=== PATIENT | male | born 1960 | race Caucasian/White ===

== ENCOUNTER 2025-07-05 18:12 | Inpatient (IN) | payer MEDICARE, OTHER ==
[~2025-07-05] VITALS: Ht 185.4 cm; Wt 82.7 kg
[2025-07-05] MEDS ORDERED: POLY119P2 PO (18:44)
[2025-07-05] MEDS ORDERED: SENN8.6T19 PO (18:44)
[2025-07-05] MEDS ORDERED: ACET-3117 PO (18:44)
[2025-07-05] MEDS ORDERED: DOCU100T2 PO (18:44)
[2025-07-05] MEDS ORDERED: BUSP5TAB3 PO (18:44)
[2025-07-05] MEDS ORDERED: HYDR-894 PO (18:44)
[2025-07-05] MEDS ORDERED: BISA10SU95 RC (18:44)
[2025-07-05] MEDS ORDERED: AMIN960L24 PO (18:44)
[2025-07-05] MEDS ORDERED: SENN-261 PO (18:44)
[2025-07-05] MEDS ORDERED: GABA-532 PO (18:44)
[2025-07-05] MEDS ORDERED: MULT-594 PO (18:44)
[2025-07-05] MEDS ORDERED: FURO20TA4 PO (18:44)
[2025-07-05] MEDS ORDERED: MAGN400O6 PO (18:44)
[2025-07-05] MEDS ORDERED: CLON0.1T PO (18:44)
[2025-07-05] MEDS ORDERED: NA P133E RC (18:44)
[2025-07-05 18:54] LABS: PLATELET COUNT (AUTO) 325 K/uL (152-348); RED BLOOD CELL COUNT(AUTO) 5.09 MIL/uL (4.06-5.63); RED CELL DISTRIBUTION WIDTH 15.0 % (12.1-16.2); WHITE BLOOD COUNT (AUTO) 9.8 K/uL (3.6-10.2)
[2025-07-05] MEDS ORDERED: LORAZEPAM 2 MG/1 ML VIAL ONE ×2 (18:57→19:22)
[2025-07-05] MEDS: LORAZEPAM 2 MG/1 ML VIAL IV ONE ×2 (19:00→19:27)
[2025-07-05 19:14] LABS: ASPARTATE AMINOTRANSFERASE 25 U/L (15-37); CREATININE 1.4 mg/dL (0.6-1.3); SODIUM SERUM 142 mmol/L (136-145); TOTAL PROTEIN, SERUM 7.9 g/dL (6.4-8.2); UREA NITROGEN, BLOOD 20 mg/dL (7-18)
[2025-07-05 19:31] LABS: ETHANOL < 3 MG/DL (0-10)
[2025-07-05 19:33] LABS: LACTIC ACID 2.5 mmol/L (0.4-2.0)
[2025-07-05] MEDS: IV NORMAL SALINE 500 ML IV ONE (19:43)
[2025-07-05 23:00] VITALS: BP 96/65
[2025-07-05] MEDS: IV NS 1000 ML 1,000 ML IV ONE (23:22)
[2025-07-06 00:42] LABS: *BILIRUBIN,URIN NEGATIVE (NEGATIVE); *BLOOD, URINE 1+ (NEGATIVE); *CLARITY,URINE CLEAR (CLEAR); *COLOR,URINE YELLOW (YELLOW); *KETONES,URINE NEGATIVE (NEGATIVE); *PROTEIN,URINE TRACE (NEGATIVE); *UROBILINOGEN,URINE 0.2 E.U./dl (NORMAL); LEUKOCYTE ESTERASE ,URINE 2+ (NEGATIVE); NITRITE, URINE POSITIVE (NEGATIVE); UGLUCOSE NEGATIVE (NEGATIVE)
[2025-07-06 00:50] LABS: *AMPHETAMINE, URINE NEGATIVE (NEGATIVE); *BARBITURATE, URINE NEGATIVE (NEGATIVE); *BENZODIAZEPINE, URINE NEGATIVE (NEGATIVE); *CANNABINOID, URINE NEGATIVE (NEGATIVE); *COCCAINE, URINE NEGATIVE (NEGATIVE); *OPIATE, URINE NEGATIVE (NEGATIVE); *PHENCYCLIDINE SCREEN,URINE NEGATIVE (NEGATIVE); FENTANYL, URINE NEGATIVE (NEGATIVE)
[2025-07-06] MEDS ORDERED: REMEDY ESSENTIAL ZINC PASTE 113 GM TP PRN (01:00)
[2025-07-06] MEDS ORDERED: ONDANSETRON 4 MG/2 ML VIAL IV PRN (01:00)
[2025-07-06] MEDS ORDERED: ACETAMINOPHEN 650 MG SUPP.RECT RC PRN (01:00)
[2025-07-06 01:46] LABS: SQUAMOUS EPITHELIAL CELL,UR NONE SEEN /HPF (NONE SEEN)
[2025-07-06] MEDS ORDERED: CEFTRIAXONE /D5W 50ML IVPB **ER PYXIS IV ONE (03:37)
[2025-07-06] MEDS: LORAZEPAM 2 MG/1 ML VIAL IV PRN (03:48)
[2025-07-06 04:05] VITALS: BP 129/83; TEMP 97.6; O2SAT 94
[2025-07-06 06:51] LABS: CREATININE 1.0 mg/dL (0.6-1.3); SODIUM SERUM 141.0 mmol/L (136-145); UREA NITROGEN, BLOOD 17.0 mg/dL (7-18)
[2025-07-06 06:52] LABS: PLATELET COUNT (AUTO) 300 K/uL (152-348); RED BLOOD CELL COUNT(AUTO) 4.70 MIL/uL (4.06-5.63); RED CELL DISTRIBUTION WIDTH 14.5 % (12.1-16.2); WHITE BLOOD COUNT (AUTO) 13.5 K/uL (3.6-10.2)
[2025-07-06 07:35] VITALS: BP 114/63; TEMP 98.8; O2SAT 100
[2025-07-06 11:35] VITALS: BP 116/71; TEMP 98.8; O2SAT 94
[2025-07-06 15:47] VITALS: BP 133/77; TEMP 98.9; O2SAT 96
[2025-07-06] MEDS ORDERED: FLEET ENEMA 133 ML BOTTLE RC PRN (18:15)
[2025-07-06] MEDS ORDERED: POLYETHYLENE GLYCOL 3350 238 GM POWDER PO PRN (18:15)
[2025-07-06] MEDS ORDERED: BISACODYL 10 MG SUPP.RECT RC PRN (18:15)
[2025-07-06] MEDS ORDERED: MAGNESIUM HYDROXIDE 30 ML LIQUID UDC PO PRN (18:15)
[2025-07-06] MEDS ORDERED: SENNOSIDES 1 TABLET PO PRN (18:15)
[2025-07-06 19:15] VITALS: BP 125/71; TEMP 98.5; O2SAT 94
[2025-07-06] MEDS ORDERED: ACETAMINOPHEN 325 MG TABLET PO PRN (20:15)
[2025-07-06] MEDS: CLONIDINE HCL 0.1 MG TABLET PO SCH (21:18)
[2025-07-07] VITALS (7 sets, daily range): BP systolic 97–123; BP diastolic 67–78; TEMP 97.9–98.9; O2SAT 87–100
[2025-07-07] MEDS ORDERED: MIRALAX 17 GM POWD.PACK PO PRN (06:30)
[2025-07-07 07:09] LABS: PLATELET COUNT (AUTO) 298 K/uL (152-348); RED BLOOD CELL COUNT(AUTO) 4.95 MIL/uL (4.06-5.63); RED CELL DISTRIBUTION WIDTH 14.8 % (12.1-16.2); WHITE BLOOD COUNT (AUTO) 9.0 K/uL (3.6-10.2)
[2025-07-07 07:23] LABS: CREATININE 0.9 mg/dL (0.6-1.3); SODIUM SERUM 142.0 mmol/L (136-145); UREA NITROGEN, BLOOD 13.0 mg/dL (7-18)
[2025-07-07] MEDS: SENNOSIDES 1 TABLET PO SCH (10:01)
[2025-07-07] MEDS: DOCUSATE SODIUM 100 MG CAPSULE PO SCH (10:01)
[2025-07-07] MEDS: FUROSEMIDE 20 MG TABLET PO SCH (10:01)
[2025-07-07] MEDS: GABAPENTIN 100 MG CAPSULE PO SCH (10:01)
[2025-07-07] MEDS: MULTIVITAMINS,THERAPEUTIC TABLET PO SCH (10:06)
[2025-07-07] MEDS: PROTEIN SUPPLEMENT (PROSTAT) 30 ML LIQUID PO SCH (10:15)
[2025-07-07] MEDS: POTASSIUM CHLORIDE 50 ML IV SCH (10:18)
[2025-07-07 11:18] LABS: EOSINOPHILS % (MANUAL) 1 % (0-8); LYMPHOCYTES % (MANUAL) 21 % (20-40); MONOCYTES % (MANUAL) 15 % (2-10); NEUTROPHILS % (MANUAL) 63 % (42-75)
[2025-07-07 11:19] LABS: PLATELET ESTIMATE ADEQUATE
[2025-07-08 00:10] VITALS: BP 91/57; TEMP 97.4; O2SAT 96
[2025-07-08 04:25] VITALS: BP 116/67; TEMP 97.4; O2SAT 97
[2025-07-08 07:25] LABS: PLATELET COUNT (AUTO) 280 K/uL (152-348); RED BLOOD CELL COUNT(AUTO) 4.82 MIL/uL (4.06-5.63); RED CELL DISTRIBUTION WIDTH 14.7 % (12.1-16.2); WHITE BLOOD COUNT (AUTO) 8.8 K/uL (3.6-10.2)
[2025-07-08 07:37] LABS: CREATININE 0.9 mg/dL (0.6-1.3); SODIUM SERUM 141.0 mmol/L (136-145); UREA NITROGEN, BLOOD 17.0 mg/dL (7-18)
[2025-07-08 09:18] LABS: LYMPHOCYTES % (MANUAL) 24 % (20-40); MONOCYTES % (MANUAL) 17 % (2-10); NEUTROPHILS % (MANUAL) 57 % (42-75)
[2025-07-08 09:19] LABS: EOSINOPHILS % (MANUAL) 2 % (0-8); PLATELET ESTIMATE ADEQUATE
[2025-07-08] MEDS: POTASSIUM CHLORIDE 20 MEQ POWDER PACKET PO ONE (10:55)
[2025-07-08 12:00] VITALS: BP 100/68; TEMP 97.4; O2SAT 98
[2025-07-08] MEDS ORDERED: DOSING PER PHARMACY-AMIKACIN IV XX PRN (15:15)
[2025-07-08 16:31] VITALS: BP 99/61; TEMP 98.1; O2SAT 99
[2025-07-08] MEDS: AMIKACIN 400 MG in IV DEXTROSE 5% 100 ML IV SCH (18:01)
[2025-07-08 19:52] VITALS: BP 89/59; TEMP 98.6; O2SAT 95
[2025-07-09 00:30] VITALS: BP 93/64; TEMP 97.9; O2SAT 96
[2025-07-09] MEDS: ACETAMINOPHEN 325 MG TABLET PO PRN (01:28)
[2025-07-09 05:04] VITALS: BP 109/72; TEMP 98.1; O2SAT 95
[2025-07-09 07:33] LABS: PLATELET COUNT (AUTO) 281 K/uL (152-348); RED BLOOD CELL COUNT(AUTO) 4.60 MIL/uL (4.06-5.63); RED CELL DISTRIBUTION WIDTH 14.8 % (12.1-16.2); WHITE BLOOD COUNT (AUTO) 7.7 K/uL (3.6-10.2)
[2025-07-09 07:47] LABS: CREATININE 0.8 mg/dL (0.6-1.3); SODIUM SERUM 139.0 mmol/L (136-145); UREA NITROGEN, BLOOD 15.0 mg/dL (7-18)
[2025-07-09 08:00] VITALS: BP 96/62; TEMP 97.6; O2SAT 98
[2025-07-09] MEDS ORDERED: NITR-84 PO (10:31)
[2025-07-09] MEDS ORDERED: LEVE500T9 PO (10:31)
[2025-07-09] MEDS ORDERED: AMIK250V13 IJ (10:31)
[2025-07-09 12:00] VITALS: BP 103/71; TEMP 98.6; O2SAT 97
[2025-07-09 13:14] VITALS: BP 103/72
== END 2025-07-09 16:00 | DRG 100 ==
LOC: ER 18:12 → TELE3 07-06 01:00
PROVIDERS: ADMIT Registered Nurse Psychiatric/Mental Health; ATTEND Student in an Organized Health Care Education/Training Program
DX: R56.9 Unspecified convulsions (principal); G92.8 Other toxic encephalopathy; N17.0 Acute kidney failure with tubular necrosis; N39.0 Urinary tract infection, site not specified; Z16.12 Extended spectrum beta lactamase (ESBL) resistance; E44.1 Mild protein-calorie malnutrition; B96.20 Unspecified Escherichia coli [E. coli] as the cause of diseases classified elsewhere; E78.5 Hyperlipidemia, unspecified; E66.9 Obesity, unspecified; Z68.24 Body mass index [BMI] 24.0-24.9, adult; I25.10 Atherosclerotic heart disease of native coronary artery without angina pectoris; Z78.1 Physical restraint status; Z87.440 Personal history of urinary (tract) infections; I10 Essential (primary) hypertension; F03.90 Unspecified dementia, unspecified severity, without behavioral disturbance, psychotic disturbance, mood disturbance, and anxiety
CPT/HCPCS: 36415; 70030-TC; 70450; 71045; 72125; 83605; 83735; 84100; 84443; 84484; 85025; 85730; 87040; 87077; 87086; A4606; A4663; C1758; G0378; G0480; J0278; J0696; J1953; J2060; J3480; J7040